=== PATIENT | male | born 2000 | race African-American/Black ===

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

== ENCOUNTER → 2022-03-10 13:05 | Outpatient (CLI) | payer OTHER, MEDICAID, SELFPAY ==
--- NOTE | 2022-03-10 13:09 | DI.CT.S_ITS ---
PROCEDURE: CT SOFT TISSUE NECK W CON INDICATIONS: Localized swelling, mass and lump, neck TECHNIQUE: After the administration of intravenous contrast, 3.0 mm axial sections acquired from the sella to the aortic arch. Additional oblique axial 3.0 mm sections acquired through the pharynx. 3 mm thick coronal and sagittal reformats were generated. For radiation dose reduction, the following was used: automated exposure control. COMPARISON: None. FINDINGS: Image quality: Excellent. Lymph nodes: There are bilateral enlarged anterior cervical chain lymph nodes which are likely reactive in nature. A artist's representative left anterior cervical lymph node on image 34/5 and image 42/2 measures 1.1 x 1.4 x 1.6 cm. That is the most prominent lymph noted. Vessels: Visualized vasculature appears patent. Neck spaces: Prominent bilateral tonsillar pillars and arytenoid tissue bilaterally The oropharynx, nasopharynx, and pharynx demonstrate no mucosal lesions. The vocal cords, false vocal cords, pyriform sinuses, epiglottis, vallecula, and tongue base all appear normal. Extramucosal spaces appear unremarkable. Glands: The parotid and submandibular glands appear normal. Thyroid gland is unremarkable as visualized. Miscellaneous: Visualized brain and orbits appear normal. Lung apices appear clear. Superficial soft tissues appear normal. Bones: No suspicious bony lesions. Visualized sinuses and mastoids appear unremarkable. IMPRESSION: 1. Prominent bilateral tonsillar pillars and bilateral written noted tissue. 2. No evidence of abscess. 3. Bilateral enlarged anterior cervical lymph nodes are likely reactive in nature. Dictated by: Jamie Nguyen M.D. on 03/10/2022 at 13:33 Approved by: Jamie Nguyen M.D. on 03/10/2022 at 13:37
== END ==
PROVIDERS: PCP Nurse Practitioner Family; Referring Provider Family Medicine; Visit Provider Family Medicine
DX: R22.1 Localized swelling, mass and lump, neck (principal); R59.0 Localized enlarged lymph nodes
CPT/HCPCS: 70491; Q9967